=== PATIENT | male | born 1985 | race Caucasian/White ===

== ENCOUNTER 2022-06-01 16:15 | Emergency (ER) | payer BC, MEDICAID ==
[2022-06-01] MEDS ORDERED: Ketorolac 30 MG/ML SDV IM ONE (17:04)
[2022-06-01] MEDS ORDERED: Cyclobenzaprine 10 MG Tab PO ONE (17:06)
== END 2022-06-01 18:00 | disposition home or self-care (01) ==
LOC: FB.ED 16:15
DX: M54.6 Pain in thoracic spine (principal); F17.210 Nicotine dependence, cigarettes, uncomplicated
CPT/HCPCS: 96372; 99283; A9270; J1885

== ENCOUNTER 2024-04-09 15:24 | Emergency (ER) | payer SELFPAY ==
[2024-04-09] MEDS: Sodium Chloride 0.9% 10 ML Syringe FLUSH PRN (15:48)
[2024-04-09 15:54] LABS: HEMATOCRIT 45.3 % (38.3-50.1); HEMOGLOBIN 15.9 g/dL (12.9-17.7); MEAN CORPUSCULAR VOLUME 88.4 fL (80.8-98.7); MEAN PLATELET VOLUME 8.1 fL (6.7-11.0); PLATELET COUNT,PLT 373 x10(3)uL (117-477); RED BLOOD CELL COUNT 5.12 x10(6)uL (3.90-5.90); RED CELL DISTRIBUTION WIDTH 12.8 % (12.4-15.0); WHITE BLOOD CELL COUNT,WBC 15.2 x10-3/uL (3.2-10.1)
[2024-04-09] MEDS: Sodium Chloride 0.9% 1,000 ML IV ONE ×2 (15:56→17:52)
[2024-04-09] MEDS: LORazepam 2 MG/ML SDV IVPUSH ONE ×2 (15:56→19:55)
[2024-04-09] MEDS: Ondansetron 4 MG/2 ML SDV IVPUSH ONE ×2 (15:56→19:56)
[2024-04-09 15:57] LABS: BLOOD UREA NITROGEN,BUN 16 mg/dL (7-18); BUN/CREATININE RATIO 13.3 (9-20); CALCIUM 9.3 mg/dL (8.6-10.2); CARBON DIOXIDE,CO2 25 mmol/L (21-32); CHLORIDE,CL 100 mmol/L (100-110); CREATININE 1.2 mg/dL (0.70-1.30); EST CRCL DRUG DOSING (CG) 98.28 mL/min; ESTIMATED GFR 80 mL/min (>60); GLUCOSE RANDOM 114 mg/dL (80-116); POTASSIUM,K 3.2 mmol/L (3.5-5.3); SODIUM,NA 140 mmol/L (135-145)
[2024-04-09] MEDS: Atropine/Diphenoxylate 0.025-2.5 MG Tab PO ONE (16:01)
[2024-04-09 16:03] LABS: ALANINE AMINOTRANSFERASE,ALT 24 U/L (12-36); ALBUMIN 4.6 g/dL (3.5-5.2); ALKALINE PHOSPHATASE 76 IU/L (56-112); ASPARTATE AMNIOTRANSFERASE,AST 13 IU/L (5-25); BILIRUBIN TOTAL 0.9 mg/dL (0.1-1.3); PROTEIN TOTAL,TP 9.1 g/dL (6.0-8.0)
[2024-04-09 16:21] LABS: LYMPHOCYTES PERCENT MAN 19 % (13-37); MONOCYTES PERCENT MAN 8 % (4-12); SEG NEUTROPHILS PERCENT MAN 73 % (46-82)
[2024-04-09 16:30] LABS: LACTIC ACID 1.7 mmol/L (0.4-2.0)
[2024-04-09] MEDS: Potassium Chloride 20 MEQ Tab.ER PO ONE (17:54)
== END 2024-04-09 20:51 ==
LOC: FB.ED 15:24
DX: E87.6 Hypokalemia (principal); F11.13 Opioid abuse with withdrawal; F17.210 Nicotine dependence, cigarettes, uncomplicated
CPT/HCPCS: 36415; 80053; 83605; 85025; 96361; 96374; 96375; 96376; 99284; A9270; J2060; J2405; J3490; J7030